=== PATIENT | female | born 1980 | race Asian ===

== ENCOUNTER 2019-07-12 23:20 | Emergency (ER) | payer OTHER ==
[~2019-07-12] VITALS: Ht 157.5 cm; Wt 46.3 kg
[2019-07-12 23:23] VITALS: BP 130/72
[2019-07-14 05:07] LABS: HIV SCRN 4G wRFX Non Reactive (Non Reactive)
== END 2019-07-12 23:44 | disposition home or self-care (01) ==
LOC: ER 23:25
DX: S69.82XA Other specified injuries of left wrist, hand and finger(s), initial encounter (principal); W46.0XXA Contact with hypodermic needle, initial encounter; Y93.89 Activity, other specified; Y92.89 Other specified places as the place of occurrence of the external cause; Y99.0 Civilian activity done for income or pay
CPT/HCPCS: 36415; 86706; 86803; 87340

== ENCOUNTER 2020-04-04 18:30 | Emergency (ER) | payer SELFPAY ==
[~2020-04-04] VITALS: Ht 157.5 cm; Wt 47.6 kg
--- NOTE | 2020-04-04 18:37 | NUR ---
the patient was picked up from the parking lot- second floor - syncope - the last thing she remembers - she called her , and she lost consciousness.
[2020-04-04] MEDS ORDERED: ONDANSETRON HCL/PF 4 MG/2 ML VIAL ONE (18:46)
[2020-04-04] MEDS ORDERED: IV NS 0.9% 1,000 ML IV ONE (19:00)
[2020-04-04] MEDS ORDERED: ONDANSETRON HCL/PF - ER 4 MG/2 ML VIAL IV ONE (19:00)
[2020-04-04 19:06] LABS: BASOPHILS # (AUTO) 0.1 /CMM (0.0-0.2); BASOPHILS % (AUTO) 2.6 % (0.0-2.0); EOSINOPHILS % (AUTO) 1.1 % (0.0-6.0); HEMATOCRIT 37 % (33-45); HEMOGLOBIN 12.3 g/dL (11.5-14.8); LYMPHOCYTES # (AUTO) 1.3 /CMM (0.8-4.8); LYMPHOCYTES % (AUTO) 22.1 % (20.0-44.0); MEAN CORPUSCULAR HGB CONC 33 g/dl (31.0-36.0); MEAN CORPUSCULAR VOLUME 93 fL (82-100); MONOCYTES # (AUTO) 0.4 /CMM (0.1-1.30); MONOCYTES % (AUTO) 7.5 % (2.0-12.0); NEUTROPHILS # (AUTO) 3.8 /CMM (1.8-8.9); NEUTROPHILS % (AUTO) 66.7 % (43.0-81.0); PLATELET COUNT (AUTO) 349 /CMM (150-450); RED BLOOD CELL COUNT(AUTO) 3.98 MIL/uL (4.0-5.2); WHITE BLOOD COUNT (AUTO) 5.7 K/uL (4.3-11.0)
--- NOTE | 2020-04-04 19:06 | NUR ---
Blood drawn and sent to lab.
[2020-04-04 19:33] LABS: CALCIUM, SERUM 8.3 mg/dL (8.5-10.1); CARBON DIOXIDE 25 mmol/L (21-32); CHLORIDE 107 mmol/L (98-107); CREATININE 0.8 mg/dL (0.6-1.3); GLUCOSE 110 mg/dL (74-106); POTASSIUM 3.7 mmol/L (3.5-5.1); SODIUM SERUM 143 mmol/L (136-145); UREA NITROGEN, BLOOD 7 mg/dL (7-18)
[2020-04-04 19:44] LABS: ALANINE AMINOTRANSFERASE 12 U/L (12-78); ALBUMIN 3.5 g/dL (3.4-5.0); ALKALINE PHOSPHATASE 49 U/L (46-116); ASPARTATE AMINOTRANSFERASE 10 U/L (15-37); BILIRUBIN,TOTAL 0.3 mg/dL (0.2-1.0); TOTAL PROTEIN, SERUM 6.8 g/dL (6.4-8.2)
--- NOTE | 2020-04-04 20:01 | NUR ---
LAB CALLED REGARDING NEGATIVE COVID RESULT.
--- NOTE | 2020-04-04 20:29 | NUR ---
urine collected and sent to lab
[2020-04-04 20:36] LABS: BILIRUBIN,URINE Negative (NEGATIVE); BLOOD, URINE Small Ery/uL (NEGATIVE); COLOR,URINE LIGHT YELLOW (YELLOW); LEUKOCYTE ESTERASE ,URINE Negative (NEGATIVE); NITRITE, URINE Negative (NEGATIVE); PROTEIN,URINE Negative (NEGATIVE); UGLUCOSE Negative (NEGATIVE); UROBILINOGEN,URINE 0.2 EU/dL (0.2)
[2020-04-04 20:54] VITALS: BP 128/85
--- NOTE | 2020-04-04 20:54 | NUR ---
IV removed. Catheter intact and site benign. Pressure and 4x4 applied to site. No bleeding noted.Patient discharged to home in stable condition. Written and verbal after care instructions given. Patient verbalizes understanding of instruction.
[2020-04-04 21:02] LABS: BACTERIA,URINE Rare /HPF (None Seen)
[2020-04-04 21:04] LABS: WBC,URINE 0-2 /HPF (0-3)
[2020-04-04 23:31] LABS: C-REACTIVE PROTEIN 0.2 mg/dL (0.0-0.9)
== END 2020-04-04 20:55 | disposition home or self-care (01) ==
LOC: ER 18:30
DX: R55 Syncope and collapse (principal); R05 Cough; Z20.828 Contact with and (suspected) exposure to other viral communicable diseases
CPT/HCPCS: 36415; 71045; 80053; 81001; 84484; 84703; 85025; 86140; 87426; 93005; 96361; 96374; 99285; C9803; J2405 ×2; J7030

== ENCOUNTER 2020-09-09 21:56 | Inpatient (IN) | payer BC, SELFPAY ==
[~2020-09-09] VITALS: Ht 157.5 cm; Wt 47.2 kg
[2020-09-09] MEDS ORDERED: IV NS 0.9% 1,000 ML BAG IV ONE (22:30)
[2020-09-09 22:39] LABS: BASOPHILS % (AUTO) 0.4 % (0.0-2.0); EOSINOPHILS % (AUTO) 0.5 % (0.0-6.0); HEMATOCRIT 43 % (33-45); HEMOGLOBIN 14.5 g/dL (11.5-14.8); LYMPHOCYTES # (AUTO) 1.6 /CMM (0.8-4.8); LYMPHOCYTES % (AUTO) 17.3 % (20.0-44.0); MEAN CORPUSCULAR HGB CONC 34 g/dl (31.0-36.0); MEAN CORPUSCULAR VOLUME 93 fL (82-100); MONOCYTES # (AUTO) 0.5 /CMM (0.1-1.30); MONOCYTES % (AUTO) 6.1 % (2.0-12.0); NEUTROPHILS # (AUTO) 6.9 /CMM (1.8-8.9); NEUTROPHILS % (AUTO) 75.7 % (43.0-81.0); PLATELET COUNT (AUTO) 352 /CMM (150-450); RED BLOOD CELL COUNT(AUTO) 4.61 MIL/uL (4.0-5.2); WHITE BLOOD COUNT (AUTO) 9.1 K/uL (4.3-11.0)
--- NOTE | 2020-09-09 22:50 | NUR ---
JOON FROM HOME TO ERBED 16. AAOX4. NOT IN RESP DISTRESS. BROUGHT IN FOR SYNCOPAL EPISODE. PT CAME FROM WORK AND HAD THE SAME INCIDENT EARLIER. UPON RECEIVED PT, SHE IS UNABLE TO MOVE. PT WAS ASSISTED TO THE BED. PLACE DON MONITOR. WAS AT THE BEDSIDE FOR EVAL.
--- NOTE | 2020-09-09 22:53 | NUR ---
CALLED TO BEDSIDE BY TO SHOW THE EPISODE THAT HAPPENS. UPON ARRIVAL PT IS UNABLE TO MOVE OR TALK BUT SHE IS CRYING AND MOANING. ABLE TO HEAR AND BLINK WHEN ASK TO. NOT IN RESP DISTRESS. CALLED TO BEDSIDE.
[2020-09-09] MEDS ORDERED: LORAZEPAM INJ 2 MG/ML VIAL ONE (22:57)
[2020-09-09 23:22] LABS: CALCIUM, SERUM 9.2 mg/dL (8.5-10.1); CARBON DIOXIDE 26 mmol/L (21-32); CHLORIDE 105 mmol/L (98-107); CREATININE 0.7 mg/dL (0.6-1.3); GLUCOSE 94 mg/dL (74-106); POTASSIUM 4.1 mmol/L (3.5-5.1); SODIUM SERUM 140 mmol/L (136-145); UREA NITROGEN, BLOOD 7 mg/dL (7-18)
[2020-09-09 23:28] LABS: ALANINE AMINOTRANSFERASE 22 U/L (12-78); ALBUMIN 4.2 g/dL (3.4-5.0); ALKALINE PHOSPHATASE 60 U/L (46-116); ASPARTATE AMINOTRANSFERASE 16 U/L (15-37); BILIRUBIN,DIRECT 0.1 mg/dL (0.0-0.2); BILIRUBIN,TOTAL 0.5 mg/dL (0.2-1.0); TOTAL PROTEIN, SERUM 8.1 g/dL (6.4-8.2)
[2020-09-09] MEDS ORDERED: LORAZEPAM INJ 2 MG/ML VIAL IV ONE (23:30)
--- NOTE | 2020-09-09 23:32 | NUR ---
WAIVER SIGNED BY THE PT
[2020-09-10] VITALS (8 sets, daily range): BP systolic 96–138; BP diastolic 62–80
--- NOTE | 2020-09-10 00:53 | NUR ---
REPORT GIVEN TO CHARLOTTE ALONSO FOR DELMA
[2020-09-10] MEDS ORDERED: ONDANSETRON HCL/PF 4 MG/2 ML VIAL IVP PRN (01:00)
[2020-09-10] MEDS ORDERED: MAGNESIUM HYDROXIDE 30 ML UDC PO PRN (01:00)
[2020-09-10] MEDS ORDERED: MAG HYDROX/AL HYDROX/SIMETH 30 ML UDC PO PRN (01:00)
--- NOTE | 2020-09-10 01:11 | NUR ---
PT TRANSFERRED PER ACLS PROTOCOL
--- NOTE | 2020-09-10 01:30 | NUR ---
TELE-RN ADMITTING NOTE RECEIVED PATIENT FROM ER VIA RHOLIDAY AND 2 STAFF MEMBERS. PATIENT ACCOMPANIED TO ROOM 329-1. PATIENT IS ALERT AND ORIENTED X 4. ABLE TO MAKE NEEDS KNOWN. COMPLAINTS OF HEADACHE - WILL ADMINISTER PAIN MEDICATION. RESPIRATIONS EVEN AND UNLABORED. NO S/SX OF RESPIRATORY DISTRESS NOTED. SEIZURE PRECAUTIONS IN PLACE. PATIENT IS ON REGULAR DIET. SKIN CHECK PERFORMED WITH NO SKIN ISSUES NOTED. PATIENT IS AMBULATORY WITH STEADY GAIT. ADMITTING DX OF SEIZURE. NO PAST MEDICAL HISTORY NOTED. IV ACCESS TO RIGHT AC #20G INTACT, PATENT AND SALINE LOCKED. PATIENT ORIENTED TO ROOM AND UNIT. CALL LIGHT WITHIN REACH. ASPIRATION, FALL AND SAFETY PRECAUTIONS MAINTAINED. WILL CONTINUE TO MONITOR.
--- NOTE | 2020-09-10 02:00 | NUR ---
TELE-RN NOTE ADMINISTERED TYLENOL FOR HEADACHE WITH POSITIVE EFFECT. TELE MONITOR READING SR 78.
[2020-09-10] MEDS: ACETAMINOPHEN 325 MG TABLET PO PRN (02:07)
--- NOTE | 2020-09-10 03:30 | NUR ---
TELE-RN NOTE TEMP RECHECK IS 97.7. PATIENTS FACE REMAINS FLUSHED. PATIENT CURRENTLY SLEEPING. WILL CONTINUE TO MONITOR.
--- NOTE | 2020-09-10 05:42 | NUR ---
TELE-RN NOTE AT APPROX. 0527 PATIENT WAS UNABLE TO OPEN HER EYES OR MOVE HER BODY. TELE MONITOR READING ST 104. VS: BP 138/77 HR 92 RR 18 O2 SAT 100% RA. RAPID RESPONSE INITIATED. NOTIFIED SCHOOL AGE TEACHER MD GARDNER WITH NEW ORDERS FOR ATIVAN 2MG IVP PRN Q6HRS FOR SEIZURE. PATIENT CURRENTLY RESTING IN BED. ABLE TO OPEN EYES TO HER NAME BUT STILL UNABLE TO MOVE HER BODY. WILL CONTINUE TO MONITOR.
[2020-09-10] MEDS: LORAZEPAM INJ 2 MG/ML VIAL IV PRN (05:50)
--- NOTE | 2020-09-10 05:54 | NUR ---
TELE-RN NOTE ADMINISTERED ATIVAN PRN WITH PENDING EFFECT. PATIENT ABLE TO MOVE HEAD BACK AND FORTH. ABLE TO KEEP EYES OPEN. ABLE TO MOAN TO QUESTIONS. WILL CONTINUE TO MONITOR.
[2020-09-10 06:56] LABS: BASOPHILS % (AUTO) 0.5 % (0.0-2.0); EOSINOPHILS % (AUTO) 0.8 % (0.0-6.0); HEMATOCRIT 39 % (33-45); LYMPHOCYTES # (AUTO) 1.7 /CMM (0.8-4.8); LYMPHOCYTES % (AUTO) 17.4 % (20.0-44.0); MEAN CORPUSCULAR HGB CONC 34 g/dl (31.0-36.0); MEAN CORPUSCULAR VOLUME 93 fL (82-100); MONOCYTES # (AUTO) 0.6 /CMM (0.1-1.30); MONOCYTES % (AUTO) 6.5 % (2.0-12.0); NEUTROPHILS # (AUTO) 7.2 /CMM (1.8-8.9); NEUTROPHILS % (AUTO) 74.8 % (43.0-81.0); PLATELET COUNT (AUTO) 336 /CMM (150-450); RED BLOOD CELL COUNT(AUTO) 4.17 MIL/uL (4.0-5.2); WHITE BLOOD COUNT (AUTO) 9.7 K/uL (4.3-11.0)
--- NOTE | 2020-09-10 06:57 | NUR ---
TELE-RN CLOSING NOTE PATIENT CURRENTLY RESTING IN BED. ALERT AND ORIENTED X 4. ABLE TO MOVE ALL EXTREMITIES, TALK, ANSWER QUESTIONS APPROPRIATELY. NO COMPLAINTS OF PAIN AT THIS TIME. IV ACCESS TO RIGHT AC INTACT, PATENT AND SALINE LOCKED. PATIENT TO HAVE NEUROLOGY AND CARDIOLOGY CONSULTS THIS AM. SEIZURE PRECAUTIONS IN PLACE. CALL LIGHT WITHIN REACH. ASPIRATION, FALL AND SAFETY PRECAUTIONS MAINTAINED. WILL ENDORSE PLAN OF CARE TO ONCOMING SHIFT.
[2020-09-10 07:00] LABS: CALCIUM, SERUM 8.4 mg/dL (8.5-10.1); CREATININE 0.7 mg/dL (0.6-1.3); MAGNESIUM 2.1 mg/dL (1.8-2.4); POTASSIUM 3.8 mmol/L (3.5-5.1)
--- NOTE | 2020-09-10 07:58 | NUR ---
MANAGER FINANCIAL PLANNING OPENING NOTE PATIENT IS IN NO ACUTE DISTRESS, PATIENT IS IN BE RESTING. PATIENT IS ON ROOM AIR TOLERATING WELL, NO SOB NOTED. PATIENT IS ON TELE MONITOR READING SR. SAFETY PRECAUTIONS ARE ON. BED IS LOCKED IN THE LOWEST POSITION, WITH SIDE RAILS UP, CALL LIGHT WITHIN THE REACH, WILL CONTINUE TO MONITOR CLOSELY.
[2020-09-10] MEDS: PANTOPRAZOLE 40 MG TABLET.DR PO SCH (10:18)
[2020-09-10 12:17] LABS: THYROID STIMULATING HORMONE 2.261 uIU/mL (0.358-3.74)
--- NOTE | 2020-09-10 19:26 | NUR ---
NAIL STICKER CLOSING NOTE PATIENT IS IN NO ACUTE DISTRESS, PATIENT IS IN BE RESTING. PATIENT IS ON ROOM AIR TOLERATING WELL, NO SOB NOTED. PATIENT IS ON TELE MONITOR READING SR 80s. SAFETY PRECAUTIONS ARE ON. BED IS LOCKED IN THE LOWEST POSITION, WITH SIDE RAILS UP, CALL LIGHT WITHIN THE REACH, ENDORSE PATIENT TO INSURANCE PREMIUM AUDITOR NURSE FOR DELMA.
--- NOTE | 2020-09-10 20:00 | NUR ---
MS/TELE/RN RECEIVE PATIENT LYING IN BED AWAKE, ALERT, ORIENTED, COMFORTABLE, NO C/O PAIN, NO DISTRESS NOTED, CALL LIGHT IN REACH, WILL MONITOR.
[2020-09-10] MEDS: OXCARBAZEPINE 150 MG TABLET PO SCH (20:21)
--- NOTE | 2020-09-10 20:42 | NUR ---
TEXTED DR. MADLONADO FOR MRI APPROVAL.
--- NOTE | 2020-09-10 23:00 | NUR ---
MS/TELE/RN PATIENT IS SLEEPING, APPEAR COMFORTABLE, NO DISTRESS NOTED, CALL LIGHT IN REACH, WILL CONTINUE TO MONITOR.
[2020-09-11] VITALS (7 sets, daily range): BP systolic 96–122; BP diastolic 41–70
--- NOTE | 2020-09-11 06:20 | NUR ---
MS/TELE/RN PATIENT IS SLEEPING, APPEAR COMFORTABLE, NO SIGNS OF DISTRESS NOTED, NO SEIZURE ACTIVITY DURING THE SHIFT, ALL NEEDS ATTENDED AT THIS TIME, WILL CONTINUE TO MONITOR.
[2020-09-11 06:39] LABS: BASOPHILS % (AUTO) 0.5 % (0.0-2.0); HEMATOCRIT 41 % (33-45); LYMPHOCYTES # (AUTO) 1.8 /CMM (0.8-4.8); MEAN CORPUSCULAR HGB CONC 34 g/dl (31.0-36.0); MEAN CORPUSCULAR VOLUME 93 fL (82-100); MONOCYTES # (AUTO) 0.6 /CMM (0.1-1.30); MONOCYTES % (AUTO) 6.5 % (2.0-12.0); NEUTROPHILS # (AUTO) 6.5 /CMM (1.8-8.9); PLATELET COUNT (AUTO) 351 /CMM (150-450); RED BLOOD CELL COUNT(AUTO) 4.45 MIL/uL (4.0-5.2); WHITE BLOOD COUNT (AUTO) 9.1 K/uL (4.3-11.0)
[2020-09-11 06:59] LABS: CALCIUM, SERUM 9.2 mg/dL (8.5-10.1); CREATININE 0.7 mg/dL (0.6-1.3); PHOSPHORUS 4.2 mg/dL (2.5-4.9); POTASSIUM 3.6 mmol/L (3.5-5.1)
--- NOTE | 2020-09-11 07:50 | NUR ---
YARD GOODS SALESPERSON OPENING NOTE PATIENT IS IN NO ACUTE DISTRESS, PATIENT IS IN BE RESTING. PATIENT IS ON ROOM AIR TOLERATING WELL, NO SOB NOTED. PATIENT IS ON TELE MONITOR READING SR. SAFETY PRECAUTIONS ARE ON. BED IS LOCKED IN THE LOWEST POSITION, WITH SIDE RAILS UP, CALL LIGHT WITHIN THE REACH, WILL CONTINUE TO MONITOR CLOSELY.
[2020-09-11] MEDS: PANTOPRAZOLE 40 MG TABLET.DR PO SCH (08:16)
[2020-09-11] MEDS: OXCARBAZEPINE 150 MG TABLET PO SCH ×2 (08:16→17:30)
[2020-09-11] MEDS: LORAZEPAM INJ 2 MG/ML VIAL IV PRN (08:58)
--- NOTE | 2020-09-11 09:05 | NUR ---
DIRECTOR CENTER NOTE PATIENT HAD AN EPISODE OF SEIZURE, ATIVAN 2MG GIVEN PRN IV PUSH, PATIENT VITAL SIGNS ARE 148/86, HEAR RATE IS 89, O2 IS 100%. PATIENT IS ASLEEP AT THE MOMENT. WILL REASSESS.
[2020-09-11] MEDS ORDERED: GADOTERATE MEGLUMINE 5 MMOL/10 ML VIAL IV ONE (14:31)
--- NOTE | 2020-09-11 18:48 | NUR ---
REPRESENTATIVE GOVERNMENT RELATIONS CLOSING NOTE PATIENT IS IN NO ACUTE DISTRESS, PATIENT IS IN BE RESTING. PATIENT IS ON ROOM AIR TOLERATING WELL, NO SOB NOTED. PATIENT IS ON TELE MONITOR READING SR. SAFETY PRECAUTIONS ARE ON. BED IS LOCKED IN THE LOWEST POSITION, WITH SIDE RAILS UP, CALL LIGHT WITHIN THE REACH, ENDORSE PATIENT TO BUTCHER CHICKEN AND FISH NURSE FOR DELMA.
[2020-09-11] MEDS: ACETAMINOPHEN 325 MG TABLET PO PRN (19:51)
--- NOTE | 2020-09-11 19:53 | NUR ---
MS/TELE/RN C/O HEADACHE, TYLENOL 650 MG PO WAS GIVEN PER PATIENT'S REQUEST.
--- NOTE | 2020-09-11 21:18 | NUR ---
MS/TELE/RN PATIENT IS SLEEPING AT THIS TIME, APPEAR COMFORTABLE, NO SIGNS OF DISTRESS NOTED, CALL LIGHT IN REACH, WILL CONTINUE TO MONITOR.
[2020-09-11] MEDS: clonazePAM 0.5 MG TABLET PO SCH (23:47)
--- NOTE | 2020-09-11 23:49 | NUR ---
MS/TELE/RN DR. RICHARDS CAME FOR PSYCH CONSULT, WAS AT BEDSIDE SPOKE TO THE PATIENT, WITH ORDER OF CLONAZEPAM 0.25 MG PO Q 12 HOURS, FIRST DOSE NOW. ORDER CARRIED OUT.
[2020-09-12] VITALS (20 sets, daily range): BP systolic 103–128; BP diastolic 59–84
--- NOTE | 2020-09-12 06:10 | NUR ---
MS/TELE/RN PATIENT IS AWAKE AT THIS TIME AND IS AT THE HEARING EXAMINER ROOM TALKING TO THE HEARING EXAMINER, ALL NEEDS ATTENDED AT THIS TIME, WILL CONTINUE TO MONITOR.
[2020-09-12 06:23] LABS: BASOPHILS # (AUTO) 0.1 /CMM (0.0-0.2); BASOPHILS % (AUTO) 0.6 % (0.0-2.0); EOSINOPHILS % (AUTO) 1.8 % (0.0-6.0); HEMATOCRIT 40 % (33-45); HEMOGLOBIN 13.6 g/dL (11.5-14.8); LYMPHOCYTES # (AUTO) 2.1 /CMM (0.8-4.8); LYMPHOCYTES % (AUTO) 21.3 % (20.0-44.0); MEAN CORPUSCULAR HGB CONC 34 g/dl (31.0-36.0); MEAN CORPUSCULAR VOLUME 93 fL (82-100); MONOCYTES # (AUTO) 0.6 /CMM (0.1-1.30); MONOCYTES % (AUTO) 6.6 % (2.0-12.0); NEUTROPHILS # (AUTO) 6.7 /CMM (1.8-8.9); NEUTROPHILS % (AUTO) 69.7 % (43.0-81.0); PLATELET COUNT (AUTO) 347 /CMM (150-450); RED BLOOD CELL COUNT(AUTO) 4.31 MIL/uL (4.0-5.2); WHITE BLOOD COUNT (AUTO) 9.6 K/uL (4.3-11.0)
[2020-09-12 07:08] LABS: CREATININE 0.6 mg/dL (0.6-1.3); MAGNESIUM 2.2 mg/dL (1.8-2.4); PHOSPHORUS 4.1 mg/dL (2.5-4.9); POTASSIUM 3.6 mmol/L (3.5-5.1)
--- NOTE | 2020-09-12 07:16 | NUR ---
SECURITY SOLUTIONS ENGINEER OPENING NOTES RECEIVED PATIENT AWAKE IN BED IN NO ACUTE DISTRESS. AT BEDSIDE. A/O X4. ABLE TO MAKE NEEDS KNOWN, DENIES PAIN OR ANY DISCOMFORTS AT THIS TIME. ON ROOM AIR, BREATHING EVEN AND UNLABORED. ON TELE MONITORING WITH CURRENT READING OF NSR., HR ON THE 80'S, NO C/O CARDIAC DISTRESS VOICED. SEIZURE AND SAFETY PRECAUTIONS IN PLACE: BED IS LOCKED AND IN THE LOWEST POSITION, SIDE RAILS UP X2 AND CALL LIGHT WITHIN REACH. WILL CONTINUE TO MONITOR PT ACCORDINGLY.
[2020-09-12] MEDS ORDERED: OXCA150T13 PO (08:37)
[2020-09-12] MEDS: OXCARBAZEPINE 150 MG TABLET PO SCH ×2 (08:55→16:03)
[2020-09-12] MEDS: SERTRALINE HCL 50 MG TABLET PO SCH (08:55)
--- NOTE | 2020-09-12 09:45 | NUR ---
RN NOTES CALLED PHARMACY AND SPOKE TO GAL, INQUIRED IF ATIVAN CAN BE RETURNED, GAL SAID TO RETURNED MEDICATION INTO THE BIN VIA TriloqICELL.
--- NOTE | 2020-09-12 10:38 | NUR ---
RN NOTES CALLED STAFF THAT PT WENT UNCONSCIOUS. APPARENTLY PT VERBALIZED TO THAT SHE DIDN'T FEEL WELL AND WENT SUDDENLY BECAME UNCONSCIOUS. HOB ELEVATED. NO SHAKING OR TREMORS NOTED. ABDOMEN SOFT AND ALL EXTREMITIES SOFT. V/S CHECKED: BP 122/84, ID [id number], RR 20, TEMP 99F. PATIENT PLACED ON OXYGEN VIA NC AT 2LPM, SPO2 OF 100%. DR. ANAND MADE AWARE WITH ORDER TO CONTACT PSYCHIATRIST DR. RICHARDS. LEFT A VOICEMAIL TO DR. RICHARDS. AWAITING CALL BACK. CALLED NEUROLOGIST DR. CANADA LEFT A MESSAGE, AWAITING CALL BACK. WILL CONTINUE TO CLOSELY MONITOR PATIENT.
[2020-09-12] MEDS: clonazePAM 0.5 MG TABLET PO SCH (11:30)
--- NOTE | 2020-09-12 11:45 | NUR ---
RN NOTES PATIENT WOKE UP FROM UNCONSCIOUSNESS AT 1125, WITH EYE OPENING, BUT STILL LETHARGIC, RESPONSIVE TO VERBAL STIMULI. STILL WEAK, UNABLE TO MOVE ALL EXTREMITIES. VITAL SIGNS STABLE, FOLLOWS: BP 122/65, KY 89, RR 18, TEMP 99F, SPO2 100% ON 2 LPM OXYGEN VIA NC. AT 1135 PATIENT IS FULLY AWAKE, ALERT ORIENTED X 4, ABLE TO MOVE ALL EXTREMITIES WITHOUT LIMITATIONS. PATIENT VERBALIZED WHILE SHE WAS UNCONSCIOUS SHE WAS AWARE OF HER SURROUNDINGS, AND HEARD ALL THE CONVERSATION BUT SHE CANNOT JUST RESPOND AND MOVE. DR. ANAND MADE AWARE AND ACKNOWLEDGED.
--- NOTE | 2020-09-12 14:57 | NUR ---
RN NOTES CALLED DR. MORSE'S OFFICE TO GIVE AN UPDATE REGARDING PATIENT'S STATUS AND SPOKE TO DONTE, DONTE PROVIDED DR. MORSE'S CELLPHONE NUMBER ([phone], CALLED THE NUMBER PROVIDED, NO ANSWER, LEFT A MESSAGE INSTEAD. AWAITING CALL BACK.
--- NOTE | 2020-09-12 14:59 | NUR ---
RN NOTES CALLED DR. RICHARDS TO GIVE AN UPDATE REGARDING PATIENT'S STATUS, NO ANSWER, LEFT A MESSAGE INSTEAD. AWAITING CALL BACK.
--- NOTE | 2020-09-12 15:15 | NUR ---
RN NOTES RECEIVED A PHONE CALL FROM DR. HUTCHINS AND UPDATED HIM WITH PATIENT'S CONDITION. DR. HUTCHINS TOLD US TO FOLLOW UP WITH NEURO.
--- NOTE | 2020-09-12 15:41 | NUR ---
RN NOTES RECEIVED RETURN CALL FROM DR. MORSE AND TOLD ME TO ASK DR. ANAND TO CALL HIM DIRECTLY TO DISCUSS HIS PLAN OF CARE WITH THE PATIENT. INFORM DR. ANAND OF DR. MORSE'S CONCERN AND PROVIDED DR. MORSE'S PHONE NUMBER. DR. ANAND ACKNOWLEDGED.
[2020-09-12] MEDS: ACETAMINOPHEN 325 MG TABLET PO PRN (16:20)
--- NOTE | 2020-09-12 16:22 | NUR ---
RN NOTES PATIENT HAS C/O OF HEADACHE TYLENOL GIVEN ORDERED. WILL CONTINUE TO MONITOR PATIENT'S CURRENT STATUS.
--- NOTE | 2020-09-12 16:30 | NUR ---
RN NOTES PT NOTED WITH TACHYCARDIA, HR OF 120 ON THE MONITOR. WHEN TO CHECK PT AND SHE VERBALIZED THAT SHE HAD HEADACHE AND FEELING NOT WELL. PT LOSS CONSCIOUSNESS AT 1625 WHICH IS 20 MINUTES AFTER TAKING TRILEPTAL 300MG PO. NO SHAKING OR TREMORS NOTED BUT PT SLIGHTLY MOANING BEFORE LOSING CONSCIOUSNESS. V/S TAKEN: BP 133/72, HR NOW 96, R 20, T 98F AND SP02 100%. ON 02 VIA N/C AT 2LPM. PT'S AT BEDSIDE. DR ANAND AND NEUROLOGIST DR MORSE MADE AWARE. NO NEW ORDERS MADE AT THIS TIME. WILL CONTINUE TO CLOSELY MONITOR PT'S STATUS.
--- NOTE | 2020-09-12 17:03 | NUR ---
RN NOTES INFORMED DR ANAND THAT DR MORSE IS WAITING FOR HIS CALL.
--- NOTE | 2020-09-12 18:41 | NUR ---
MS RN CLOSING NOTES PATIENT WOKE UP FROM UNCONSCIOUSNESS AT 1835, FULLY AWAKE, A&O X 4, ABLE TO MAKE NEEDS KNOWN, ABLE TO MOVE EXTREMITIES, NO COMPLAINTS OF PAIN OR HEADACHE AT THIS TIME. VS STABLE FOLLOW BP 121/67, CT 102, RR 18, TEMP 98.4, SPO2 100%. ON OXYGEN VIA NC AT 2LPM, NO RESPIRATORY DISTRESS NOTED AT THIS TIME AND EVEN WHEN SHE WAS UNCONSCIOUS. IV ACCESS ON RAC G# 20 INTACT, PATENT AND FLUSHES WELL. CURRENTLY AT BED SIDE. SAFETY PRECAUTIONS OBSERVED AND MAINTAINED DURING THE SHIFT: BED ON LOWEST LOCKED POSITION. KEPT CALL LIGHT WITHIN EASY REACH, SIDE RAILS UP X2. DUE MEDS GIVEN ORDERED. ENDORSED TO DAIRY SCIENTIST NURSE FOR CONTINUITY OF CARE.
--- NOTE | 2020-09-12 19:17 | NUR ---
RN NOTES DR ANAND WITH ORDER TO TRANSFER PT TO ICU TONIGHT FOR CLOSE MONITORING. ENDORSED TO WOODWORKING MACHINE FEEDER NURSE MCKAY.
--- NOTE | 2020-09-12 19:50 | NUR ---
MS RN OPENING PATIENT IN BED ALERT AND ORIENTED. IN THE ROOM. NO S/S OF DISTRESS. NO C/O PAIN. NO FLUIDS RUNNING. SAFETY PRECAUTIONS IN PLACE: BED IN LOWEST, LOCKED POSITION. CALL LIGHT WITHIN REACH. WILL CONTINUE TO MONITOR.
--- NOTE | 2020-09-12 20:20 | NUR ---
RECEIVED PT FROM 3W VIA HOSPITAL BED PT IS UNCONSCIOUS NOT RESPONDING TO ANY STIMULI, PUPIL IS REACTIVE TO LIGHT ON O2 VIA NC 2L SPO2 100% HR 90S, HOOKED TO MONITOR WITH READING SINUS RHYTHM BP ON NORMAL RANGE, NO TREMORS OR JERKING NOTED, TEETH CLENCHING NOTED, PT HAVE RAC #20 PATENT AND FLUSHED, DR BORJAS CAME AND SEE PATIENT, AT BEDSIDE,BED ON LOWEST POSITION AND LOCKED SIDE RAILS UP X2 CALL LIGHT WITHIN REACH WILL CONT TO MONITOR
--- NOTE | 2020-09-12 20:36 | NUR ---
MS RN NOTES PATIENT HAD ANOTHER SYNCOPAL EPISODE. AGREED TO TRANSFER TO ICU, WHEN INITIALLY THE AND PATIENT WERE REFUSING THE TRANSFER. GAVE REPORT TO CHARLOTTE APONTE IN ICU. PATIENT TRANSFERRED VIA HOSPITAL BED @1999. V/S WNL DURING THE TRANSFER, ALTHOUGH PATIENT WAS UNCONSCIOUS.
[2020-09-12] MEDS: NS 0.9% IV SCH (21:04)
[2020-09-12] MEDS: LEVETIRACETAM IV SCH (21:04)
--- NOTE | 2020-09-12 21:15 | NUR ---
PT IS STILL UNCONSCIOUS V/S SIGNS STABLE SPO2 100% ON 2L O2 VIA NC, SEND PATIENT TO RADIOLOGY FOR CT SCAN WITH RN AT BEDSIDE TO MONITOR
--- NOTE | 2020-09-12 21:25 | NUR ---
PT GAIN CONSCIOUSNESS, SHE GET AWAKE AA/O X4 VERBALIZED, PER PT SHE HEAR THE CONVERSATION BETWEEN THE DOCTORS AND THE STAFF AT BEDSIDE, BUT SHE CANNOT MOVE OR OPEN HER EYES, V/S SIGNS IS STABLE WITH SPO2 100% HR 89, BP 107/67, WILL CONTINUE TO MONITOR
[2020-09-13] VITALS (29 sets, daily range): BP systolic 82–139; BP diastolic 19–85
[2020-09-13] MEDS: clonazePAM 0.5 MG TABLET PO SCH ×3 (00:04→12:57)
--- NOTE | 2020-09-13 07:00 | NUR ---
RN NOTES PATIENT ASLEEP WELL ON BED. WAKE UP TO GO THE BATHROOM WITH 1 PERSON ASSIST/STANDBY ASSIST NO WEAKNESSES NOTED.NO SEIZURE OR SYNCOPAL EPISODE. PATIENT REMAINED AOX4. ROOM AIR TOLERATED SATURATION >92%. AFEBRILE. VSS. KEPT PT CLEAN AND DRY AND COMFORTABLE IN BED. CALL LIGHT ANSWERED PROMPTLY. ENDORSED CONT. OF CARE TO AM NURSE.
--- NOTE | 2020-09-13 07:09 | NUR ---
RN OPENING NOTES RECEIVED PATIENT ASLEEP BUT ROUSABLE AND ORIENTED. NOT IN ANY PAIN OR RESPIRATORY DISTRESS. SATURATING 98% ON RA. SR 78 ON TELE MONITOR. PERIPHERAL LINE INTACT. JUNG DRAINING TO GRAVITY. SAFETY CHECKS IN PLACE. WILL CONTINUE TO MONITOR.
[2020-09-13] MEDS: SERTRALINE HCL 50 MG TABLET PO SCH ×3 (08:26→09:21)
[2020-09-13] MEDS: NS 0.9% IV SCH ×2 (09:15→21:51)
[2020-09-13] MEDS: LEVETIRACETAM IV SCH ×2 (09:15→21:51)
--- NOTE | 2020-09-13 11:30 | NUR ---
RN NOTE ESCORTED TO RADIOLOGY TOGETHER WITH RADIOLOGY STAFF VIA ACLS PROTOCOL. PATIENT UNDWERWENT LUMBAR PUNCTURE. PATIENT NOT IN ANY DISTRESS AND VITAL SIGNS WERE WITHIN NORMAL LIMITS DURING THE PROCEDURE. PATIENT RETRUNED TO [facility] IN STABLE CONDITION. 13 MLS OF CSF SPECIMEN SENT TO LAB FOR FURTHER TESTS.
[2020-09-13 11:32] LABS: CSF GLUCOSE 59 mg/dL (40-70); CSF PROTEIN 20.9 mg/dL (15-45)
--- NOTE | 2020-09-13 18:36 | NUR ---
RN NOTE PATIENT HAS BEEN ACCEPTED AT [facility] FOR CONTINUITY OF CARE. PATIENT NEEDED 72 HRS OF CONTINUOUS EEG PER NEUROLOGY. DISCHARGE PAPERWORKS STARTED.
--- NOTE | 2020-09-13 19:12 | NUR ---
RN NOTE [facility] (AJ, ) CALLED TO SAY PATIENT IS NOT ACCEPTED AT [facility] AFTER THE DOCTORS THERE REVIEWED AND FOUND THAT PATIENT DOESN'T FIT THEIR CRITERIA. AJ REPORTS THE CALL TO [employer] [facility] WAS "FINANCIAL ACCEPTANCE" ONLY. THIS WAS DISCUSSED BY AJ WITH DR ANAND WELL.
--- NOTE | 2020-09-13 19:45 | NUR ---
RN NOTES RECEIVED PATIENT AWAKE ALERT ORIENTED X 4 RESPONSIVE TO TACTILE AND VERBAL STIMULI. SATURATION 98% IN ROOM AIR. AFEBRILE. VSS. INFORMED BY PREVIOUS NURSE REGARDING THE CANCELLATION OF TRANSFER TO OTHER HOSPITAL. PATIENT IS AWARE AND VERY HAPPY NOT TO BE TRANSFER PER PATIENT INSTEAD SHE WANNA GO HOME SINCE THEY HAVEN'T FOUND ANYTHING TO HER. RISK AND BENEFITS EXPLAINED, PATIENT IS WELL AWARE. REMINDED TO USE CALL LIGHT FOR ASSISTANCE TO THE BATHROOM EVEN SHE FEELS LIKE SHE CAN DO THINGS ON HER OWN. VERBALIZED UNDERSTANDING.
[2020-09-14] VITALS (12 sets, daily range): BP systolic 89–120; BP diastolic 41–84
[2020-09-14] MEDS: clonazePAM 0.5 MG TABLET PO SCH ×2 (00:04→11:40)
--- NOTE | 2020-09-14 06:20 | NUR ---
RN NOTES CALLED 3 [facility]ST SPOKE TO CLAUDY AND GIVE REPORT THAT PATIENT WILL BE TRANSFER TO [facility], RECEIVING RN AWARE.
--- NOTE | 2020-09-14 06:40 | NUR ---
RN NOTES SPOKE TO PATIENT AND INFORMED THAT SHE WILL BE TRANSFER IN [facility] BUT BEFORE INFORMING PATIENT ASSESSED THE PATIENT AND ASKED HER HOW SHES DOING?, PATIENT STATED " I FEEL WEAK RIGHT NOW." NO SEIZURE ACTIVITY PRESENT. PT REMAINED AOX4 ABLE TO VERBALIZED NEEDS. VSS. INFORMED NIGEL REGARDING THE PATIENT STATUS PER ONCALL TO WAIT DR. PIERRE TO DECIDE IN AM. TRANSFER HOLD FOR NOW. PRODUCE TEAM MEMBER AND [facility] NURSE AWARE.
[2020-09-14] MEDS ORDERED: LEVE1000 PO (08:17)
[2020-09-14] MEDS: SERTRALINE HCL 50 MG TABLET PO SCH ×2 (08:37→08:44)
[2020-09-14] MEDS ORDERED: LEVETIRACETAM (250 MG) 250 MG TABLET PO SCH (09:00)
--- NOTE | 2020-09-14 09:00 | NUR ---
INSURANCE CHECKER NOTE SEEN AND EXAMINED BY DR. ANAND, ORDER FOR DISCHARGE, ALL DC PAPERS DONE AND SIGNED. BUT PATIENT STATED THAT SHE IS NOT FEELING WELL. VS IS STABLE. NO SIGNS OF DISTRESS AT THIS TIME, SATING 100%. MD MADE AWARE. PER MD TO TRANSFER TO [facility] TO 329.
--- NOTE | 2020-09-14 10:05 | NUR ---
MS FRAME FIXER NOTES RECEIVED PATIENT FROM ICU REPORT GIVEN BY CLAIRE. EYES CLOSED, PATIENT IS ALERT AND ORIENTED X 4, MAKING SOUNDS, RESPONDS TO VERBAL AND TACTILE STIMULI. PATIENT IS TOLERATING WELL ON ROOM AIR. BREATHING IS REGULAR AND UNLABORED. NO SIGNS OR SYMPTOMS OF DISTRESS NOTED. SEIZURE AND SAFETY MEASURES IN PLACE WITH BED LOCKED AT LOWEST POSITION, SIDE RAILS UP AND PADED. CALL LIGHT IS WITHIN REACH. WILL CONTINUE TO MONITOR THROUGHOUT SHIFT.
--- NOTE | 2020-09-14 10:15 | NUR ---
OCCUPATIONAL THERAPIST'S ASSISTANT NOTES TRANSFERRED TO 329, REPORT GIVEN BEDSIDE TO CHARLOTTE MALAVE. NO SIGNS OF DISTRESS, ALL BELONGINGS WITH PATIENT.
--- NOTE | 2020-09-14 13:40 | NUR ---
MS PUSHCART PEDDLER NOTES PATIENT IS AWAKE, ALERT AND ORIENTED X 4. PATIENT IS TOLERATING WELL ON ROOM AIR. BREATHING IS REGULAR AND UNLABORED. NO SEIZURE ACTIVITY NOTED. NO SIGNS OR SYMPTOMS OF DISTRESS NOTED. ALL NEEDS ATTENDED TO. DISCHARGE SUMMARY AND NEW PRESCRIPTIONS REVIEWED WITH PATIENT. ALL BELONGINGS RETURNED. IV ACCESS AND WRIST BAND REMOVED. PATIENT ESCORTED OUTSIDE BY AND MONIQUE CHEEK VIA WHEELCHAIR.
== END 2020-09-14 13:40 | disposition home or self-care (01) | DRG 101 ==
LOC: ER 21:59 → TELE 09-10 00:05 → MED 09-12 09:43 → ICU 09-12 20:20 → MED 09-14 06:27 → ICU 09-14 06:40 → MED 09-14 09:59
PROVIDERS: ADMIT Registered Nurse; ATTEND Internal Medicine
DX: R56.9 Unspecified convulsions (principal); F44.4 Conversion disorder with motor symptom or deficit; F32.9 Major depressive disorder, single episode, unspecified; F41.9 Anxiety disorder, unspecified; R55 Syncope and collapse; R90.89 Other abnormal findings on diagnostic imaging of central nervous system; R53.1 Weakness; Z20.822 Contact with and (suspected) exposure to COVID-19
CPT/HCPCS: 36415; 62270; 70450-TC; 70553-TC; 71045-TC; 80048-TC; 80061-TC; 80076-TC; 80177; 83735-TC; 84100-TC; 84439-TC; 84443-TC; 84484-TC; 84703-TC; 85025-TC; 85378-TC; 85730-TC; 86694; 87070-TC; 87081-TC; 89051-TC; 93307-TC; 95819-TC; A9575; G0378; J1953; J2060; J7030; J7050

== ENCOUNTER 2021-04-30 21:05 | Emergency (ER) | payer BC, OTHER ==
[~2021-04-30] VITALS: Ht 160 cm; Wt 50.8 kg
[~2021-04-30 21:05] MED LIST: LEVE1000 PO
--- NOTE | 2021-04-30 21:15 | NUR ---
CAME IN ON GURNEY FROM 2ND FLOOR TO ER BED 9. AAOX4. NOT IN RESP DISTRESS. PT HAD A SLIP AND FALL AND HIT HER HEAD ON THE WALL. DENIES KO. PAIN 01/27. NOTED SWELLING ON R PARIETAL AREA.
[2021-04-30] MEDS ORDERED: KETOROLAC TROMETHAMINE INJ 30 MG/ML VIAL IV ONE (21:30)
[2021-04-30] MEDS ORDERED: ACETAMINOPHEN 325 MG TABLET PO ONE (21:30)
[2021-04-30] MEDS ORDERED: IV NS 0.9% 1,000 ML IV ONE (21:30)
[2021-04-30] MEDS ORDERED: ACETAMINOPHEN 325 MG TABLET ONE (21:35)
[2021-04-30] MEDS ORDERED: IBUP-1955 PO (22:22)
--- NOTE | 2021-04-30 22:33 | NUR ---
Patient discharged to home in stable condition. Written and verbal after care instructions given. Patient verbalizes understanding of instruction.IV removed. Catheter intact and site benign. Pressure and 4x4 applied to site. No bleeding noted. Pt ambulatory with a steady gait
[2021-04-30 22:35] VITALS: BP 125/77
== END 2021-04-30 22:36 | disposition home or self-care (01) ==
LOC: ER 21:07
DX: S09.90XA Unspecified injury of head, initial encounter (principal); W01.0XXA Fall on same level from slipping, tripping and stumbling without subsequent striking against object, initial encounter; Y93.89 Activity, other specified; Y92.89 Other specified places as the place of occurrence of the external cause; Y99.8 Other external cause status
CPT/HCPCS: 70450; 96360; 99284; J7030

== ENCOUNTER 2021-09-30 23:21 | Emergency (ER) | payer OTHER ==
[~2021-09-30] VITALS: Ht 160 cm; Wt 53.5 kg
[~2021-09-30 23:21] MED LIST changes: +IBUP-1955 PO
--- NOTE | 2021-09-30 23:24 | NUR ---
BIBS FROM WORK C/O LEFT LOWER BACK PAIN RADIATING UP TO BACK AND TO LEG X THURSDAY. TOOK TYLENOL WITH NO RELIEF. PT A/OX4. TOLERATING R/A WELL WITH NO SOB. CONNECTED PT TO POX AND MONITOR. AMBULATORY WITH STEADY GAIT. SAFETY MEASURES IN PLACE.
--- NOTE | 2021-09-30 23:43 | NUR ---
DR. YANNICK NAIK AT PT'S BEDSIDE
[2021-09-30] MEDS ORDERED: CYCLOBENZAPRINE 10 MG TABLET ONE (23:56)
[2021-09-30] MEDS ORDERED: KETOROLAC TROMETHAMINE INJ 30 MG/ML VIAL ONE (23:56)
[2021-10-01] MEDS ORDERED: CYCLOBENZAPRINE 10 MG TABLET PO ONE
[2021-10-01] MEDS ORDERED: KETOROLAC TROMETHAMINE INJ 30 MG/ML VIAL IM ONE
--- NOTE | 2021-10-01 00:04 | NUR ---
PREG WAIVER SIGNED
[2021-10-01] MEDS ORDERED: CYCL10TA9 PO (01:24)
[2021-10-01] MEDS ORDERED: NAPR-1009 PO (01:24)
[2021-10-01 01:31] VITALS: BP 127/61
--- NOTE | 2021-10-01 01:31 | NUR ---
Patient discharged to home in stable condition. Written and verbal after care instructions given. Patient verbalizes understanding of instruction.
== END 2021-10-01 01:31 | disposition home or self-care (01) ==
LOC: ER 23:23
DX: M51.26 Other intervertebral disc displacement, lumbar region (principal); Z79.899 Other long term (current) drug therapy
CPT/HCPCS: 96372; 99283; J1885